=== PATIENT | female | born 1995 | race Caucasian/White ===

== ENCOUNTER 2022-06-07 21:26 | Observation (INO) ==
[2022-06-07] MEDS ORDERED: SODIUM CHLORIDE 0.9% 500 ML IV STA (23:25)
[2022-06-07] MEDS ORDERED: ONDANSETRON 4 MG/2 ML VIAL IV STA (23:25)
[2022-06-07] MEDS ORDERED: ALUM/MAG/SIMETH/LIDO VISC 1:1 30 ML BOTTLE PO STA (23:25)
[2022-06-07] MEDS ORDERED: PANTOPRAZOLE 40 MG VIAL IV STA (23:25)
[2022-06-08 00:13] LABS: Basophils # 0.1 10*3/uL (0.0-0.2); Basophils % 0.6 % (0.0-0.8); Eosinophils # 0.2 10*3/uL (0.0-0.87); Eosinophils % 2.4 % (0.00-10.9); Hematocrit 40.1 VOL% (35.7-47.0); Hemoglobin 13.7 GM/DL (12.0-16.0); Immature Granulocytes % 0.3 %; Immature Granulocytes Absolute 0.03 #; Lymphocytes # 2.5 10*3/uL (1.4-4.0); Lymphocytes % 29.1 % (21.3-54.2); Mean Corpuscular HGB Conc 34.2 GM/DL (32-36); Mean Corpuscular Volume 87.6 FL (87-102); Mean Platelet Volume 9.7 FL (9.6-12.0); Monocytes # 0.7 10*3/uL (0.11-0.8); Monocytes % 7.6 % (1.7-12.7); Platelet Count 263 T/CUMM (130-400); Red Blood Count 4.58 MC/CUMM (3.8-5.5); Red Cell Distribution Width 11.9 % (9.3-17.3); White Blood Count 8.7 T/CUMM (4-12)
[2022-06-08 00:17] LABS: Alanine Aminotransferase 25 U/L (13-56); Albumin 3.6 G/DL (3.4-5.0); Alkaline Phosphatase 38 U/L (45-117); Amylase 58 U/L (25-115); Aspartate Amino Transferase 15 U/L (0-37); Bilirubin,Total < 0.39 MG/DL (0.20-1.00); Blood Urea Nitrogen 12 MG/DL (7-18); Calcium 9.1 MG/DL (8.5-10.1); Carbon Dioxide 28 MMOL/L (21-32); Chloride 106 MMOL/L (98-107); Glucose 91 MG/DL (74-106); Osmolality,Calculated 276.5 MOS/KG (273-304); Sodium 139 MMOL/L (136-145); Total Protein 7.5 G/DL (6.4-8.2)
[2022-06-08 00:20] LABS: Bilirubin,Urine Negative (Negative); Blood, Urine Negative (Negative); Glucose,Urine (UA) Negative (Negative); Ketones,Urine Negative (Negative); Nitrite,Urine Negative (Negative); Protein,Urine Negative (Negative); Urine Appearance Clear (Clear); Urine Color Yellow (Yellow); Urine Specific Gravity >= 1.030 (1.001-1.035); Urine Urobilinogen 0.2 eU/dL (<2.0)
[2022-06-08 00:22] LABS: Mucus,Urine Few /LPF (Occasional); Squamous Epithelial Cell,Urine Occasional /HPF (0-10)
[2022-06-08] MEDS ORDERED: ACETAMINOPHEN 325 MG TABLET PO PRN (04:31)
[2022-06-08] MEDS: HYDROmorphone 1 MG/1 ML SYRINGE IV PRN ×3 (05:50→20:30)
[2022-06-08] MEDS: SODIUM CHLORIDE 0.9% 1,000 ML IV SCH ×3 (05:52→22:39)
[2022-06-08] MEDS: PIPERACILLIN/TAZOBACTAM 3,375 MG in SODIUM CHLORIDE 0.9% 100 ML IV SCH ×3 (05:52→20:31)
[2022-06-08] MEDS: ONDANSETRON 4 MG/2 ML VIAL IV PRN ×2 (05:59→16:35)
[2022-06-08] MEDS ORDERED: CLINDAMYCIN INJ 900 MG/50 ML PREMIX IV ONE (07:38)
[2022-06-08] MEDS ORDERED: INDOCYANINE GREEN 25 MG VIAL IV ONE (07:38)
[2022-06-08] MEDS: PANTOPRAZOLE 40 MG VIAL IV SCH (09:24)
[2022-06-08] MEDS ORDERED: DEXMEDETOMIDINE 200 MCG/2 ML VIAL ONE ×2 (10:00→11:01)
[2022-06-08] MEDS ORDERED: SCOPOLAMINE 1.5 MG PATCH TRANSDERM ONE (10:00)
[2022-06-08] MEDS ORDERED: DEXAMETHASONE 4 MG/1 ML VIAL ONE ×2 (10:06)
[2022-06-08] MEDS ORDERED: ROCURONIUM 50 MG/5 ML VIAL IV ONE (10:20)
[2022-06-08] MEDS ORDERED: SEVOFLURANE 1 UNIT/15 MINUTE INH ONE (10:20)
[2022-06-08] MEDS ORDERED: MIDAZOLAM 2 MG/2 ML VIAL ONE (10:20)
[2022-06-08] MEDS ORDERED: propofoL 200 MG/20 ML VIAL IV ONE (10:20)
[2022-06-08] MEDS ORDERED: fentaNYL 100 MCG/2 ML VIAL ONE (10:20)
[2022-06-08] MEDS ORDERED: LIDOCAINE 2% 5 ML VIAL ONE (10:36)
[2022-06-08] MEDS ORDERED: ONDANSETRON 4 MG/2 ML VIAL ONE (10:36)
[2022-06-08] MEDS ORDERED: LACTATED RINGERS 1,000 ML IV ONE (10:59)
[2022-06-08] MEDS ORDERED: ePHEDrine 50 MG/ML VIAL ONE (11:21)
[2022-06-08] MEDS ORDERED: SUGAMMADEX 200 MG/2 ML VIAL IV ONE (11:31)
[2022-06-08] MEDS ORDERED: TISSUE ADHESIVE 1 EACH APPLICATOR TOP ONE (11:51)
[2022-06-08] MEDS ORDERED: KETOROLAC 30 MG/1 ML VIAL ONE (11:55)
[2022-06-08] MEDS ORDERED: PROMETHAZINE INJ 25 MG in SODIUM CHLORIDE 0.9% 50 ML IV PRN (12:29)
[2022-06-08] MEDS ORDERED: HYDROmorphone 1 MG/1 ML SYRINGE IV PRN (12:29)
[2022-06-08] MEDS ORDERED: ONDANSETRON 4 MG/2 ML VIAL IV PRN (12:29)
[2022-06-08] MEDS ORDERED: MEPERIDINE 50 MG/1 ML VIAL ONE (12:31)
[2022-06-08] MEDS: MEPERIDINE 50 MG/1 ML VIAL IV PRN ×2 (12:32→12:42)
[2022-06-08] MEDS ORDERED: PROMETHAZINE INJ 12.5 MG in SODIUM CHLORIDE 0.9% 50 ML IV PRN (12:35)
[2022-06-08] MEDS ORDERED: PROMETHAZINE 25 MG/1 ML VIAL ONE (12:38)
[2022-06-09] MEDS: HYDROmorphone 1 MG/1 ML SYRINGE IV PRN (03:13)
[2022-06-09] MEDS: SODIUM CHLORIDE 0.9% 1,000 ML IV SCH (04:13)
[2022-06-09] MEDS: PIPERACILLIN/TAZOBACTAM 3,375 MG in SODIUM CHLORIDE 0.9% 100 ML IV SCH (04:16)
[2022-06-09 04:28] LABS: Basophils % 0.3 % (0.0-0.8); Eosinophils % 0.1 % (0.00-10.9); Hematocrit 38.9 VOL% (35.7-47.0); Hemoglobin 13.1 GM/DL (12.0-16.0); Immature Granulocytes % 0.3 %; Immature Granulocytes Absolute 0.03 #; Lymphocytes # 1.7 10*3/uL (1.4-4.0); Lymphocytes % 16.9 % (21.3-54.2); Mean Corpuscular HGB Conc 33.7 GM/DL (32-36); Mean Corpuscular Volume 87.6 FL (87-102); Mean Platelet Volume 9.4 FL (9.6-12.0); Monocytes # 0.7 10*3/uL (0.11-0.8); Monocytes % 6.9 % (1.7-12.7); Neutrophils % 75.5 % (38.7-73.9); Platelet Count 301 T/CUMM (130-400); Red Blood Count 4.44 MC/CUMM (3.8-5.5); Red Cell Distribution Width 11.9 % (9.3-17.3); White Blood Count 10.3 T/CUMM (4-12)
[2022-06-09 04:51] LABS: Alanine Aminotransferase 33 U/L (13-56); Albumin 3.2 G/DL (3.4-5.0); Alkaline Phosphatase 37 U/L (45-117); Aspartate Amino Transferase 24 U/L (0-37); Bilirubin,Total < 0.39 MG/DL (0.20-1.00); Blood Urea Nitrogen 7 MG/DL (7-18); Calcium 8.4 MG/DL (8.5-10.1); Carbon Dioxide 25 MMOL/L (21-32); Chloride 111 MMOL/L (98-107); Glucose 93 MG/DL (74-106); Osmolality,Calculated 276.4 MOS/KG (273-304); Potassium 4.1 MMOL/L (3.5-5.1); Sodium 140 MMOL/L (136-145); Total Protein 6.7 G/DL (6.4-8.2)
[2022-06-09 07:41] VITALS: BP 99/63
[2022-06-09] MEDS: PANTOPRAZOLE 40 MG VIAL IV SCH (08:13)
== END 2022-06-09 11:53 | disposition home or self-care (01) ==
LOC: N.EDINP 21:26 → N.ED 21:26 → N.EDINP 06-08 06:20 → N.2W 06-08 06:36
PROVIDERS: ADMIT Student in an Organized Health Care Education/Training Program; ATTEND Student in an Organized Health Care Education/Training Program